=== PATIENT | female | born 1995 | race Two or more races ===

== ENCOUNTER 2023-10-01 15:00 | Outpatient (CLI) | payer OTHER | END 2023-10-01 15:01 | disposition home or self-care (01) | LOC: PRENATAL 15:00 | PROVIDERS: ATTEND Obstetrics & Gynecology Maternal & Fetal Medicine | DX: O36.80X0 Pregnancy with inconclusive fetal viability, not applicable or unspecified (principal); O99.011 Anemia complicating pregnancy, first trimester; Z3A.12 12 weeks gestation of pregnancy; Z36.82 Encounter for antenatal screening for nuchal translucency ==

== ENCOUNTER 2023-11-25 14:42 | Outpatient (CLI) | payer OTHER | END 2023-11-25 14:43 | disposition home or self-care (01) | LOC: PRENATAL 14:42 | PROVIDERS: ATTEND Obstetrics & Gynecology Maternal & Fetal Medicine | DX: O35.3XX0 Maternal care for (suspected) damage to fetus from viral disease in mother, not applicable or unspecified (principal); O44.00 Complete placenta previa NOS or without hemorrhage, unspecified trimester; O99.019 Anemia complicating pregnancy, unspecified trimester; Z3A.20 20 weeks gestation of pregnancy ==

== ENCOUNTER 2024-01-20 14:17 | Outpatient (CLI) | payer OTHER | END 2024-01-20 14:18 | disposition home or self-care (01) | LOC: PRENATAL 14:17 | PROVIDERS: ATTEND Obstetrics & Gynecology Maternal & Fetal Medicine | DX: O44.00 Complete placenta previa NOS or without hemorrhage, unspecified trimester (principal); O26.849 Uterine size-date discrepancy, unspecified trimester; Z3A.28 28 weeks gestation of pregnancy ==

== ENCOUNTER 2024-04-05 14:00 | Inpatient (IN) | payer OTHER ==
[~2024-04-05] VITALS: Ht 172.7 cm; Wt 90.7 kg
[2024-04-05 15:11] LABS: URINE BACTERIA 1775.7 uL (0.0-1933); URINE EPITHELIAL CELLS 82.1 uL (0.0-38.8); URINE WBC 40.6 uL (0.0-23.2)
[2024-04-05 15:13] LABS: HEMATOCRIT 34.6 % (36.0-45.00); HEMOGLOBIN 12.3 g/dL (12.0-15.00); MEAN CELL VOLUME 95.6 fL (80.00-100.00); MEAN CORPUSCULAR HEMOGLOBIN 33.9 pg (27.00-32.0); MEAN CORPUSCULAR HGB CONC 35.5 g/dl (32.0-36.0); PLATELET COUNT 204 K/uL (150-450); RED BLOOD COUNT 3.62 M/uL (4.00-6.00); RED CELL DISTRIBUTION WIDTH 13.2 % (11.5-14.5)
[2024-04-05 15:16] LABS: URINE APPEARANCE Cloudy; URINE BILIRRUBIN Negative (NEGATIVE); URINE BLOOD Negative; URINE COLOR Yellow; URINE GLUCOSE Negative (NEGATIVE); URINE KETONE Negative (NEGATIVE); URINE LEUKOCYTE Trace; URINE NITRATE Negative; URINE PROTEIN Negative (NEGATIVE); URINE UROBILINOGEN 0.2 E.U./dl
[2024-04-05 15:29] LABS: INR < 0.93; PARTIAL THROMBOPLASTIN TIME 24.3 SECONDS (22.0-34.0); PROTHROMBIN TIME 9.9 SECONDS (9.0-11.5)
[2024-04-05 15:36] LABS: ALBUMIN 2.9 gm/dL (3.4-5.0); BILIRUBIN TOTAL 0.28 mg/dL (0.3-1.2); CALCIUM 9.1 mg/dL (8.5-10.1); CREATININE SERUM 0.62 mg/dL (0.55-1.02); GFR 113.02; GLOBULINA 3.9 G/DL (2.4-3.5); POTASSIUM 3.58 mEq/L (3.5-5.1); TOTAL PROTEIN 6.8 gm/dL (6.4-8.2)
[2024-04-05 15:54] LABS: URINE CAST 0.44 uL (0.0-1.40); URINE CRYSTALS FEW /HPF; URINE MUCUS SCANT
[2024-04-11 17:30] VITALS: BP 142/76
[2024-04-11] MEDS ORDERED: VALTREX1000 MG PO (18:22)
[2024-04-11] MEDS ORDERED: PRENATABS RX T1 EACH PO (18:23)
[2024-04-11 23:14] VITALS: BP 146/58
[2024-04-11] MEDS ORDERED: MORPHINE SULFATE 4 MG/ML VIAL IV ONE (23:30)
[2024-04-12] VITALS (7 sets, daily range): BP systolic 101–144; BP diastolic 38–79
[2024-04-12] MEDS ORDERED: OXYTOCIN 20 UNITS/500ML RL PIGGYBAG IV ONE (04:18)
[2024-04-12] MEDS ORDERED: LIDOCAINE HCL 1% 10ML VIAL ONE ×2 (04:29→04:54)
[2024-04-12] MEDS ORDERED: ERYTHROMYCIN BASE OPHT 1GM EACH TUBE OP ONE (04:29)
[2024-04-12] MEDS ORDERED: CHLORHEXIDINE GLUCONATE 120 ML BOTTLE TOP ONE (04:29)
[2024-04-12] MEDS ORDERED: OXYTOCIN 20 UNITS/1000ML RL PIGGYBAG IV ONE (04:29)
[2024-04-12] MEDS ORDERED: OXYTOCIN 1,000 ML IV SCH (05:30)
[2024-04-12] MEDS ORDERED: CHLORHEXIDINE GLUCONATE 120 ML BOTTLE TOP SCH (05:30)
[2024-04-12] MEDS ORDERED: ACETAMINOPHEN 325 MG TABLET PO PRN (05:30)
[2024-04-12] MEDS ORDERED: PNV,CALCIUM 72/IRON/FOLIC ACID 1 TAB TABLET PO SCH (09:00)
[2024-04-12 17:02] LABS: MEAN CELL VOLUME 97.4 fL (80.00-100.00); PLATELET COUNT 191 K/uL (150-450); RED BLOOD COUNT 2.47 M/uL (4.00-6.00)
[2024-04-12 17:06] LABS: HEMOGLOBIN 8.2 g/dL (12.0-15.00); MEAN CORPUSCULAR HEMOGLOBIN 33.1 pg (27.00-32.0)
[2024-04-13] VITALS: BP 130/85
[2024-04-13 08:00] VITALS: BP 109/74
[2024-04-13] MEDS ORDERED: FERROUS SULFATE 325 MG TABLET.EC PO SCH (09:00)
[2024-04-13 16:00] VITALS: BP 122/78
[2024-04-14 00:22] VITALS: BP 119/79
[2024-04-14 08:00] VITALS: BP 121/80
== END 2024-04-14 14:26 | disposition home or self-care (01) | DRG 807 ==
LOC: O/R 04-10 14:00 → LDR 04-11 17:56 → OB/GYN 04-11 17:56 → LDR 04-11 19:45 → OB/GYN 04-12 07:26
PROVIDERS: Obstetrics & Gynecology; ADMIT Obstetrics & Gynecology; ATTEND Obstetrics & Gynecology
PROC: 4A1HXCZ Monitoring of Products of Conception, Cardiac Rate, External Approach (ICD-10-PCS; 2024-04-11)
PROC: 10E0XZZ Delivery of Products of Conception, External Approach (ICD-10-PCS; principal; 2024-04-12)
PROC: 0HQ9XZZ Repair Perineum Skin, External Approach (ICD-10-PCS; 2024-04-12)
PROC: 0UQMXZZ Repair Vulva, External Approach (ICD-10-PCS; 2024-04-12)
PROC: 3E033VJ Introduction of Other Hormone into Peripheral Vein, Percutaneous Approach (ICD-10-PCS; 2024-04-12)
DX: O70.0 First degree perineal laceration during delivery (principal); Z37.0 Single live birth; O71.82 Other specified trauma to perineum and vulva; Z3A.40 40 weeks gestation of pregnancy